=== PATIENT | female | born 1960 | race Caucasian/White ===

== ENCOUNTER → 2017-03-23 16:57 | Outpatient (CLI) | payer BC ==
[2014-07-31 17:21] VITALS: BMI 30.5
[~2017-03-23 16:57] MED LIST: PREVACID30 MG PO; ZOLOFT50 MG PO
== END | disposition home or self-care (01) ==
LOC: D.MAMMO 16:15
DX: Z12.31 Encounter for screening mammogram for malignant neoplasm of breast (principal)

== ENCOUNTER → 2018-09-04 16:50 | Outpatient (CLI) | payer BC ==
[2014-07-31 17:21] VITALS: BMI 30.5
== END | disposition home or self-care (01) ==
LOC: D.MAMMO 14:45
DX: Z12.31 Encounter for screening mammogram for malignant neoplasm of breast (principal)